=== PATIENT | female | born 1965 | race Caucasian/White ===

== ENCOUNTER → 2017-08-22 12:26 | Outpatient (CLI) | payer MEDICAID, SELFPAY ==
[2017-08-22 13:38] LABS: Add Manual Diff / Slide Review NO; Basophils Percent Auto 0.6 % (0-2); Eosinophils Percent Auto 4.4 % (2-4); Hematocrit 32.2 % (36-46); Hemoglobin 10.2 g/dL (12.0-16.0); Lymphocytes Percent Auto 24.5 % (25-40); Mean Corpuscular HGB Conc 31.7 % (30-36); Mean Corpuscular Hemoglobin 25.5 PG (26-34); Mean Corpuscular Volume 80.4 fL (80-100); Monocytes Percent Auto 9.8 % (3-14); Neutrophils Absolute Auto 3600 /uL (3000-5900); Neutrophils Percent Auto 60.7 % (50-75); Platelet Count 292 X10^3/uL (150-400); Red Cell Distribution Width 18.3 % (11.6-14.8)
[2017-08-22 13:51] LABS: Alanine Aminotransferase 32 IU/L (9-52); Albumin 4.3 g/dL (3.5-5.0); Albumin Globulin Ratio 1.2 (1.0-2.8); Alkaline Phosphatase 127 U/L (38-126); Aspartate Aminotransferase 41 IU/L (14-36); Bilirubin Total 0.5 mg/dL (0.2-1.3); Blood Urea Nitrogen 8 mg/dL (7-17); Calcium 9.1 mg/dL (8.4-10.2); Carbon Dioxide 26 mmol/L (22-32); Chloride 105 mmol/L (98-107); Estimated Glomerular Filt Rate > 60.0 mL/min (>60); Globulin 3.7 g/dL (1.7-4.1); Glucose 100 mg/dL (70-100); HEMOLYSIS < 15 (0-50); Potassium 3.8 mmol/L (3.4-5.1); Sodium 142 mmol/L (137-145)
== END ==
PROVIDERS: PCP Family Medicine; Visit Provider Family Medicine
DX: R19.5 Other fecal abnormalities (principal)
CPT/HCPCS: 36415; 80053; 85025

== ENCOUNTER → 2018-01-26 15:22 | Outpatient (CLI) | payer MEDICAID, OTHER, SELFPAY ==
[2018-01-26 16:27] LABS: Alanine Aminotransferase 34 IU/L (9-52); Albumin 4.3 g/dL (3.5-5.0); Albumin Globulin Ratio 1.3 (1.0-2.8); Alkaline Phosphatase 146 U/L (38-126); Aspartate Aminotransferase 83 IU/L (14-36); BUN Creatinine Ratio 13.8 (6-22); Bilirubin Total 0.7 mg/dL (0.2-1.3); Blood Urea Nitrogen 11 mg/dL (7-17); Calcium 9.3 mg/dL (8.4-10.2); Carbon Dioxide 25 mmol/L (22-32); Chloride 103 mmol/L (98-107); Estimated Glomerular Filt Rate > 60.0 mL/min (>60); Globulin 3.4 g/dL (1.7-4.1); Glucose 109 mg/dL (70-100); HEMOLYSIS < 15 (0-50); Potassium 4.6 mmol/L (3.4-5.1); Sodium 142 mmol/L (137-145); Total Protein 7.7 g/dL (6.3-8.2)
== END ==
PROVIDERS: Family Provider Family Medicine; PCP Family Medicine; Visit Provider Family Medicine
DX: I10 Essential (primary) hypertension (principal)
CPT/HCPCS: 36415; 80053

== ENCOUNTER → 2019-05-07 11:42 | Outpatient (CLI) | payer MEDICAID, SELFPAY ==
[2019-05-07 13:14] LABS: Add Manual Diff / Slide Review NO; Basophils Absolute Auto 0 /uL (0-100); Basophils Percent Auto 0.2 % (0-2); Eosinophils Absolute Auto 0 /uL (0-450); Eosinophils Percent Auto 0.2 % (2-4); Hematocrit 31.2 % (36-46); Hemoglobin 10.3 g/dL (12.0-16.0); Lymphocytes Absolute Auto 2100 /uL (1100-4500); Lymphocytes Percent Auto 12.7 % (25-40); Mean Corpuscular HGB Conc 32.9 % (30-36); Mean Corpuscular Hemoglobin 30.2 PG (26-34); Mean Corpuscular Volume 91.8 fL (80-100); Monocytes Absolute Auto 900 /uL (0-900); Monocytes Percent Auto 5.7 % (3-14); Neutrophils Absolute Auto 13100 /uL (1500-7000); Neutrophils Percent Auto 81.2 % (50-75); Platelet Count 400 X10^3/uL (150-400); Red Cell Distribution Width 19.5 % (11.6-14.8); White Blood Cell Count 16.2 X10^3/uL (4.5-11.0)
[2019-05-07 13:33] LABS: INR 1.2 (0.9-1.3); Prothrombin Time 14.2 SECONDS (10.1-12.7)
[2019-05-07 15:19] LABS: Alanine Aminotransferase 31 IU/L (<35); Albumin 2.6 g/dL (3.5-5.0); Albumin Globulin Ratio 0.7 (1.0-2.8); Alkaline Phosphatase 323 U/L (38-126); Aspartate Aminotransferase 158 IU/L (14-36); BUN Creatinine Ratio 8.3 (6-22); Bilirubin Total 1.6 mg/dL (0.2-1.3); Blood Urea Nitrogen 5 mg/dL (7-17); Calcium 8.1 mg/dL (8.4-10.2); Carbon Dioxide 27 mmol/L (22-32); Chloride 103 mmol/L (98-107); Estimated Glomerular Filt Rate > 60.0 mL/min (>60); Globulin 3.6 g/dL (1.7-4.1); Glucose 81 mg/dL (70-100); HEMOLYSIS < 15 (0-50); Sodium 138 mmol/L (137-145); Total Protein 6.2 g/dL (6.3-8.2)
[2019-05-07 15:28] LABS: NT-proBNP (BNP-Adult 18+) 378 pg/mL (<125)
[2019-05-07 16:36] LABS: Hepatitis B Surface Antigen NEGATIVE s/c (NEGATIVE)
[2019-05-07 16:55] LABS: HIV 1 & 2 Ab/Ag 4th Gen Combo NEGATIVE (NEGATIVE); Hep C Virus Ab w/Reflex Quant NEGATIVE s/c (NEGATIVE)
[2019-05-11 15:07] LABS: Hepatitis B Surf Ab Qualitativ Nonreactive (Nonreactive)
== END ==
PROVIDERS: Family Provider Family Medicine; PCP Family Medicine; Referring Provider Family Medicine; Visit Provider Family Medicine
DX: R10.9 Unspecified abdominal pain (principal); Z87.898 Personal history of other specified conditions; R60.0 Localized edema
CPT/HCPCS: 36415; 80053; 83880; 85025; 85610; 86706; 86803; 87340; 87389

== ENCOUNTER 2019-05-08 17:09 | Inpatient (IN) | payer MEDICARE, MEDICAID, SELFPAY ==
[2019-05-08 17:45] VITALS: BP 128/76; PULSE 107; RESP 20; TEMP 36.8; O2SAT 99; BMI 25.4
--- NOTE | 2019-05-08 18:16 | ED_ITS ---
HPI - Extremity Problem General Chief complaint: Extremity Problem,Nontraumatic Stated complaint: states abnormal labs, legs swelling Time Seen by Provider: 05/08/19 18:00 Source: patient Mode of arrival: Family Vehicle Limitations: no limitations History of Present Illness HPI Narrative: 53-year-old female nonsmoker with history of uterine cancer, factor 5 Leiden and DVTs with extensive bowel surgeries presents with abdominal pain, generalized fatigue and a general feeling of being unwell for the past week or 2. She states that she has had nausea and vomiting, poor appetite and severe abdominal pain over that time frame. She denies any runny nose, sore throat or cough. She denies chest pain but has been a bit short of breath. She denies any fever or shaking chills. Patient had lost about 60 pounds unplanned over the last year, but has had some unexplained weight gain over the past week. Last BM about 5 days ago. Patient is overall doing quite unwell, not able to eat or drink, suffering significant pain and unable to care for herself. MD Complaint: extremity swelling Onset (ago): day(s) Pain Consistency: constant Quality: aching Relieving factors: nothing Associated symptoms: shortness of breath Related Data Home Medications Medication Instructions Recorded Confirmed sertraline 50 mg tablet 50 mg PO DAILY 01/28/19 05/07/19 lamotrigine 100 mg tablet 150 mg PO DAILY tab 05/07/19 05/07/19 quetiapine 100 mg tablet 100 mg PO BEDTIME 05/07/19 05/07/19 Previous Rx's Medication Instructions Recorded promethazine 25 mg tablet 25 mg PO Q6H PRN #30 tab 09/21/18 levetiracetam 1,000 mg tablet 1,000 mg PO BID #60 tab 01/15/19 hydroxyzine HCl 25 mg tablet 25 mg PO QID PRN #120 tab 01/28/19 apixaban 2.5 mg tablet 2.5 mg PO BID #60 mg 03/18/19 Allergies Allergy/AdvReac Type Severity Reaction Status Date / Time cephalexin [From KEFLEX] Allergy Intermediate Verified 05/08/19 17:52 Review of Systems Constitutional Constitutional: Denies chills, Reports fatigue, Denies fever(s), Denies frequent falls, Denies lethargy and Reports weakness Eyes Eyes: Denies change in vision, Denies eye discharge, Denies irritation and Denies loss of vision ENT Ears, Nose, Mouth, and Throat: Denies change in voice, Denies dizziness, Denies neck pain, Denies sore throat and Denies throat swelling Cardiovascular Cardiovascular: Denies chest pain, Denies irregular heart rhythm, Denies lightheadedness, Denies palpitations, Reports dyspnea, Reports dyspnea on exertion and Denies orthopnea Respiratory Respiratory: Denies cough, Reports dyspnea, Reports dyspnea on exertion and Denies wheezing Gastrointestinal Gastrointestinal: Reports abdominal pain, Denies change in bowel habits, Denies diarrhea, Denies nausea and Denies vomiting Genitourinary Genitourinary: Denies hematuria, Denies flank pain, Denies urinary incontinence and Denies urinary urgency Musculoskeletal Musculoskeletal: Denies back pain, Denies muscle weakness, Denies neck pain, Denies numbness and Denies tingling Integumentary/Breasts Skin/Breast: Denies pruritus, Denies erythema, Denies rash and Denies wounds Neurologic Neurologic: Denies behavioral changes, Denies confusion, Denies dizziness, Denies frequent falls, Denies loss of vision, Denies numbness, Denies tingling and Reports weakness Psychiatric Psychiatric: Denies anxiety, Denies behavioral changes, Denies confusion, Denies depression, Denies homicidal ideation and Denies suicidal ideation Endocrine Endocrine: Reports fatigue, Denies flushing and Denies palpitations Hematologic/Lymphatic Hematologic/Lymphatic: Denies easy bruising Allergic/Immunologic Allergic/Immunologic: Denies urticaria, Denies throat swelling and Denies wheezing Patient History Medical History History of agoraphobia (Chronic) History of anemia (Chronic) History of anxiety (Chronic) History of Lau's palsy (Resolved) History of chickenpox (Resolved) History of chronic back pain (Resolved) History of depression (Chronic) History of deviated nasal septum (Chronic) History of DVT (deep vein thrombosis) (Resolved) History of factor V Leiden mutation (Chronic) History of hypertension (Chronic) History of ovarian cyst (Resolved) History of pancreatitis (Resolved) History of posttraumatic stress disorder (PTSD) (Chronic) History of prolapse of bladder (Chronic) History of pulmonary embolism (Resolved) History of restless legs syndrome (Chronic) History of seizures (Chronic) History of substance abuse (Resolved) History of uterine cancer (Resolved) Multiple fractures of thoracic spine (Resolved) Surgical History H/O left knee surgery (Resolved) H/O wisdom tooth extraction (Resolved) History of appendectomy (Resolved) History of gastric bypass (Resolved) History of tonsillectomy and adenoidectomy (Resolved) History of total hysterectomy (Suspected) S/P abdominoplasty (Resolved) S/P bilateral breast reduction (Chronic) S/P breast biopsy, right (Resolved) S/P cholecystectomy (Resolved) S/P gastrectomy (Resolved) Thrombus (Chronic) Family History Child Age: 22 Factor V Leiden Child Age: 23 Atrial fibrillation Father Age: 76 COPD (chronic obstructive pulmonary disease) Colon cancer Hypertension Grandfather Hypertension Grandmother Diabetes mellitus Heart disease Hypertension Mother Diabetes mellitus Hypertension Mental health problem Grandfather Hypertension Social History marital status: occupational status: unemployed Smoking Status: Never smoker alcohol intake: current substance use type: methamphetamine Smoking Status: Never smoker alcohol intake frequency: 0-2 drinks per day Substance Use Type: does not use Exam Narrative Exam Narrative: GENERAL: [53] year old patient appears stated age. Chronically ill HEAD: Atraumatic. Normocephalic. Temporal wasting EYES: Pupils equal round and reactive. Extraocular motions intact. No scleral icterus. No injection or drainage. ENT: Nose without bleeding, purulent drainage. Throat without erythema, tonsillar hypertrophy or exudate. Airway patent. NECK: Trachea midline. Non tender CARDIOVASCULAR: Regular rate and rhythm without murmurs, gallops, or rubs. RESPIRATORY: Faint crackles in left base. GASTROINTESTINAL: Abdomen soft, painful to palp, nondistended. EXTREMITIES: No edema or joint tenderness. BACK: Nontender without deformity or crepitance. No flank tenderness. NEURO: AOx3. SKIN: No rash or erythema of visible areas Initial Vital Signs Initial Vital Signs: Vital Signs Temperature 98.3 F 05/08/19 17:45 Pulse Rate 107 H 05/08/19 17:45 Respiratory Rate 20 05/08/19 17:45 Blood Pressure 128/76 05/08/19 17:45 Pulse Oximetry 99 05/08/19 17:45 Course Orders Ordered: ED Orders 05/08/19 22:26 CT chest abd pel w con Stat 05/09/19 03:30 Consult to General Surgery Stat 05/09/19 04:00 Lactate (Lactic Acid) Stat Discontinued Medications Levofloxacin (Levaquin) 500 mg in 100 mls @ 100 mls/hr IV NOW ONE Stop: 05/09/19 03:34 Last Admin: 05/09/19 03:59 Dose: 100 mls/hr Documented by: PATIENCE Metronidazole (Flagyl) 500 mg in 100 mls @ 100 mls/hr IV NOW ONE Stop: 05/09/19 03:34 Consultations Consultation #1: Dr. Chan consulted regarding CT findings. Recommends ABX, admission to hospitalist service and will see her in the morning. Vital Signs Vital signs: Vital Signs - 8 hr 05/08/19 21:30 05/09/19 01:06 Pulse Rate 97 H 91 H Respiratory Rate 17 18 Blood Pressure [Left Arm] 112/71 108/79 Pulse Oximetry 94 97 MDM - Extremity (Nontraumatic) Lab Data Result diagrams: 05/08/19 18:31 05/08/19 18:31 Labs: Lab Results 05/08/19 05/08/19 05/08/19 Range/Units 18:31 18:31 18:31 WBC 16.1 H (4.5-11.0) X10^3/uL RBC 3.50 L (4.0-5.2) X10^6/uL Hgb 10.6 L (12.0-16.0) g/dL Hct 32.1 L (36-46) % MCV 91.9 (80-100) fL MCH 30.3 (26-34) PG MCHC 33.0 (30-36) % RDW 19.8 H (11.6-14.8) % Plt Count 410 H (150-400) X10^3/uL Neut % (Auto) 76.6 H (50-75) % Lymph % (Auto) 17.1 L (25-40) % [place] % (Auto) 6.0 (3-14) % Eos % (Auto) 0.2 L (2-4) % Baso % (Auto) 0.1 (0-2) % Neut # (Auto) 75207 H (0933-4062) /uL Lymph # (Auto) 2800 (7082-4630) /uL [place] # (Auto) 1000 H (0-900) /uL Eos # (Auto) 0 (0-450) /uL Baso # (Auto) 0 (0-100) /uL PT 15.8 H (10.1-12.7) SECONDS INR 1.4 H (0.9-1.3) APTT 45 H (26.4-36.2) SECONDS Sodium 140 (137-145) mmol/L Potassium 3.6 (3.4-5.1) mmol/L Chloride 102 (98-107) mmol/L Carbon Dioxide 27 (22-32) mmol/L BUN 5 L (7-17) mg/dL Creatinine 0.60 (0.52-1.04) mg/dL Estimated GFR > 60.0 (>60) mL/min BUN/Creatinine Ratio 8.3 (6-22) Glucose 103 H (70-100) mg/dL Calcium 8.1 L (8.4-10.2) mg/dL Total Bilirubin 1.5 H (0.2-1.3) mg/dL AST 188 H (14-36) IU/L ALT 32 (<35) IU/L Alkaline Phosphatase 346 H (38-126) U/L Total Creatine Kinase (30-135) U/L CK-MB (CK-2) CK-MB (CK-2) Rel Index Troponin I (0.01-0.034) ng/mL NT-Pro-B Natriuret Pep (<125) pg/mL Total Protein 6.8 (6.3-8.2) g/dL Albumin 3.0 L (3.5-5.0) g/dL Globulin 3.8 (1.7-4.1) g/dL Albumin/Globulin Ratio 0.8 L (1.0-2.8) Lipase 138 (23-300) U/L Blood Type Antibody Screen 05/08/19 05/08/19 Range/Units 18:31 18:31 WBC (4.5-11.0) X10^3/uL RBC (4.0-5.2) X10^6/uL Hgb (12.0-16.0) g/dL Hct (36-46) % MCV (80-100) fL MCH (26-34) PG MCHC (30-36) % RDW (11.6-14.8) % Plt Count (150-400) X10^3/uL Neut % (Auto) (50-75) % Lymph % (Auto) (25-40) % [place] % (Auto) (3-14) % Eos % (Auto) (2-4) % Baso % (Auto) (0-2) % Neut # (Auto) (5744-6330) /uL Lymph # (Auto) (9470-6577) /uL [place] # (Auto) (0-900) /uL Eos # (Auto) (0-450) /uL Baso # (Auto) (0-100) /uL PT (10.1-12.7) SECONDS INR (0.9-1.3) APTT (26.4-36.2) SECONDS Sodium (137-145) mmol/L Potassium (3.4-5.1) mmol/L Chloride (98-107) mmol/L Carbon Dioxide (22-32) mmol/L BUN (7-17) mg/dL Creatinine (0.52-1.04) mg/dL Estimated GFR (>60) mL/min BUN/Creatinine Ratio (6-22) Glucose (70-100) mg/dL Calcium (8.4-10.2) mg/dL Total Bilirubin (0.2-1.3) mg/dL AST (14-36) IU/L ALT (<35) IU/L Alkaline Phosphatase (38-126) U/L Total Creatine Kinase 27 L (30-135) U/L CK-MB (CK-2) TNP CK-MB (CK-2) Rel Index TNP Troponin I < 0.012 (0.01-0.034) ng/mL NT-Pro-B Natriuret Pep 555 H (<125) pg/mL Total Protein (6.3-8.2) g/dL Albumin (3.5-5.0) g/dL Globulin (1.7-4.1) g/dL Albumin/Globulin Ratio (1.0-2.8) Lipase (23-300) U/L Blood Type A Positive Antibody Screen Negative Imaging Data CT scan - abdomen/pelvis: Radiologist's Impression: Liver is enlarged, severely heterogeneous with questionable hepatocellular disease. There is geographic pattern of fatty infiltration and areas of fatty spacing. Moderate amount of ascites in the abdomen and pelvis. Chest notes a moderate left-sided pleural effusion. Additional findings note a 7.5 cm x 4.6 cm fluid collection midline in the upper pelvis. There is questionable short-segment partial small-bowel obstruction versus abscess Discharge Plan Departure Patient Disposition: Admitted As Inpatient Clinical Impression: Pleural effusion, Partial obstruction of small intestine, Adult failure to thrive Admit Date/Time: 05/09/19 04:16 Admit Provider: Elsa Valdez
[2019-05-08 18:41] LABS: Add Manual Diff / Slide Review NO; Basophils Absolute Auto 0 /uL (0-100); Basophils Percent Auto 0.1 % (0-2); Eosinophils Absolute Auto 0 /uL (0-450); Eosinophils Percent Auto 0.2 % (2-4); Hematocrit 32.1 % (36-46); Hemoglobin 10.6 g/dL (12.0-16.0); Lymphocytes Absolute Auto 2800 /uL (1100-4500); Lymphocytes Percent Auto 17.1 % (25-40); Mean Corpuscular Hemoglobin 30.3 PG (26-34); Mean Corpuscular Volume 91.9 fL (80-100); Monocytes Absolute Auto 1000 /uL (0-900); Neutrophils Absolute Auto 12400 /uL (1500-7000); Neutrophils Percent Auto 76.6 % (50-75); Platelet Count 410 X10^3/uL (150-400); Red Cell Distribution Width 19.8 % (11.6-14.8); White Blood Cell Count 16.1 X10^3/uL (4.5-11.0)
[2019-05-08 18:51] LABS: INR 1.4 (0.9-1.3); Prothrombin Time 15.8 SECONDS (10.1-12.7)
[2019-05-08 18:54] LABS: PTT Partial Thromboplastin Tim 45 SECONDS (26.4-36.2)
[2019-05-08 18:55] LABS: Alanine Aminotransferase 32 IU/L (<35); Albumin Globulin Ratio 0.8 (1.0-2.8); Alkaline Phosphatase 346 U/L (38-126); Aspartate Aminotransferase 188 IU/L (14-36); BUN Creatinine Ratio 8.3 (6-22); Bilirubin Total 1.5 mg/dL (0.2-1.3); Blood Urea Nitrogen 5 mg/dL (7-17); Calcium 8.1 mg/dL (8.4-10.2); Carbon Dioxide 27 mmol/L (22-32); Chloride 102 mmol/L (98-107); Estimated Glomerular Filt Rate > 60.0 mL/min (>60); Globulin 3.8 g/dL (1.7-4.1); Glucose 103 mg/dL (70-100); HEMOLYSIS 23 (0-50); Lipase 138 U/L (23-300); Potassium 3.6 mmol/L (3.4-5.1); Sodium 140 mmol/L (137-145); Total Protein 6.8 g/dL (6.3-8.2)
[2019-05-08 19:25] LABS: Creatine Kinase 27 U/L (30-135)
[2019-05-08 19:38] LABS: NT-proBNP (BNP-Adult 18+) 555 pg/mL (<125); Troponin I < 0.012 ng/mL (0.01-0.034)
[2019-05-08 21:30] VITALS: BP 112/71; PULSE 97; RESP 17; O2SAT 94
--- NOTE | 2019-05-08 22:26 | DI.CT.S_ITS ---
PROCEDURE: CT CHEST ABD PEL W CON INDICATIONS: pain, short of breath, weakness, weight loss TECHNIQUE: After the administration of oral and intravenous contrast, 5 mm thick sections acquired from the lung apices to the symphysis. 5 mm coronal and sagittal reformats were performed, with additional 7 mm coronal MIP reformats through the lungs. For radiation dose reduction, the following was used: automated exposure control, adjustment of mA and/or kV according to patient size. COMPARISON: None. FINDINGS: Image quality: Excellent. CHEST: Lungs and pleura: No acute airspace opacities. There is a small to moderate left-sided pleural effusion, with associated overlying atelectasis. No pneumothorax. Central and peripheral airways appear patent and normal in caliber. Mediastinum: Heart size is normal. Coronary artery calcifications are seen. No pericardial effusion. No mediastinal or hilar adenopathy by size criteria. Prominent calcified mediastinal lymph nodes are seen. Thoracic aorta and central pulmonary arteries are normal in size. Esophagus is normal in caliber. There is a small hiatal hernia. Chest wall: No axillary or supraclavicular adenopathy by size criteria. Thyroid gland demonstrates a heterogeneous appearance, with an apparent enhancing nodule seen on the left measuring 12 mm, as on series 2 image 2. ABDOMEN: Solid organs: The liver is enlarged and demonstrates residual areas of low density. Gallbladder has been removed. Biliary system is non dilated. Pancreas enhances normally. Spleen is normal in size and enhancement. Calcified granulomas are seen within the spleen. No adrenal nodules. Kidneys demonstrate normal size and enhancement, without hydronephrosis. Peritoneum and bowel: There is a focal fluid collection seen within the midabdomen anteriorly, just posterior to the umbilicus that measures 8 x 4.5 x 4 cm. This is seen immediately adjacent to an anastomotic staple line. Gastroesophageal junction postoperative change is seen. There is postoperative change seen of the distal small bowel. Generalized wall thickening is seen throughout the small bowel. Mild to moderate ascites is seen. Nodes and vessels: No retroperitoneal or mesenteric adenopathy by size criteria. Aorta and inferior vena cava are normal in size. Miscellaneous: No ventral hernias. Anasarca is noted. PELVIS: Genitourinary: Bladder wall thickness is normal. Miscellaneous: No inguinal hernias or adenopathy. Bones: No suspicious bony lesions. Some remote anterior wedge deformities are seen. IMPRESSION: There is a focal fluid collection seen within the midabdomen anteriorly. This is felt most likely be intraluminal, related to a side to side anastomosis. However, differential diagnosis includes an abscess. As clinically appropriate, please consider a repeat examination with oral contrast with a long dwell time (3-4 hours). [id number] left-sided pleural effusion. The liver is enlarged and demonstrates regional areas of low density. This is felt most likely be related to an atypical appearance of fatty liver infiltration. However, an infiltrating process, hepatocellular disease, or unusual metastatic disease is also possible. [id number] ascites is seen There is anasarca. Incidental note is made of: Small hiatal hernia Cholecystectomy Apparent gastric bypass surgery Prior granulomatous exposure. Note: No significant discrepancy from the preliminary report. Dictated by: Anton Pedro M.D. on 05/09/2019 at 8:38 Approved by: Anton Pedro M.D. on 05/09/2019 at 8:49
--- NOTE | 2019-05-08 22:29 | PC.NURSE ---
PICC nurse now at bedside for line placement
[2019-05-09] VITALS (8 sets, daily range): BP systolic 105–132; BP diastolic 60–89; PULSE 86–116; RESP 16–18; TEMP 35.9–36.7; O2SAT 97–99; BMI 25.1
[2019-05-09] MEDS: levoFLOXacin 500 MG/100 ML PIGGYBACK 100 MG IV (03:59)
[2019-05-09 04:34] LABS: Lactate (Lactic Acid) 0.6 mmol/L (0.7-2.1)
--- NOTE | 2019-05-09 06:04 | PM.HP.1 ---
History of Present Illness History of Present Illness Date Patient Seen: 05/09/19 Time Patient Seen: 06:05 Chief complaint: states abnormal labs, legs swelling Narrative: The patient is a 53-year-old female with complex PMH... HTN, factor V leiden, h/o DVT x2 (LLE 1995, ?), PE x2 (1197, ?), chronic Eliquis anticoagulation, h/o uterine cancer (s/p hysterectomy, 2001), pancreatitis, obesity (s/p gastric bypass), epilepsy (last seizure 08/2018), psychiatric illness (PTSD, depression, agoraphobia, h/o prior meth abuse and EtOH abuse), chronic back pain, RLS, h/o SBO x2, Patient presented to the ED on 05/08/2019 out of concern for abdominal pain. Abdominal pain is localized to the RUQ and epigastic regions of the abdomen. Associated symptoms include exertional dyspnea, peripheral edema, abdominal distention, 40 lb weight loss (over 4 months), progressive fatigue, and chest pain (worse w/ inspiration). Patient reports difficulty swallowing and sensation of food being stuck in esophagus. Reports change in pattern of micturition and color of urine. Denies fever and chills. Abdominal pain is exacerbated by food consumption. Reports rectal bleeding 1 month ago, which patient attributed to hemorrhoids. Last BM on Friday. Reports passing gas. Known history of multiple abdominal surgeries (appendectomy, gastric by pass surgery w/ complications, partial small-bowel resection, YOANA, and abdominoplasty. Prior h/o of SBO x2 (last 10 yrs ago). CT (chest, abdomen, and pelvis) concerning for left pleural effusion, hepatomegaly / hepatocellular disease and short-segment partial SBO vs. extraluminal abscess. General surgery was consulted, Dr. Barnes, with plans to see patient later this morning. Pertinent abnormal labs... WBC 16.1, Hgb 10.6 ED Presentation & Work-Up Stable VS trend. Labs, 05/08/19 1831 WBC 16.1 Lactate 0.6 Trop < 0.012 Nt-pro BNP 555 Hgb 10.6 Plt 410 PT 15.8 INR 1.4 aPTT 45 Na 140 K 3.6 Cl 102 Ca 8.1 Alb 3.0 Glu 103 CO2 27 BUN 5 Cr 0.6 BUN:Cr 8.3 AST 188 ALT 32 ALP 346 Lipase 138 CK (tot) 27 CT of chest / abdomen / pelvis Moderate left pleural effusion with posterior lower lobe atelectasis Liver is enlarged severely, question hepatocellular disease There is a geographic pattern of fatty infiltration w/ focal areas of fat sparing A 7.5 cm x 4.6 cm fluid collection in the midline of the upper pelvis, question of short segment partial SBO vs. Extraluminal Abscess In ED received, levofloxacin 500 mg. Patient History Medical History History of agoraphobia (Chronic) History of anemia (Chronic) History of anxiety (Chronic) History of Lau's palsy (Resolved) History of chickenpox (Resolved) History of chronic back pain (Resolved) History of depression (Chronic) History of deviated nasal septum (Chronic) History of DVT (deep vein thrombosis) (Resolved) History of factor V Leiden mutation (Chronic) History of hypertension (Chronic) History of ovarian cyst (Resolved) History of pancreatitis (Resolved) History of posttraumatic stress disorder (PTSD) (Chronic) History of prolapse of bladder (Chronic) History of pulmonary embolism (Resolved) History of restless legs syndrome (Chronic) History of seizures (Chronic) History of substance abuse (Resolved) History of uterine cancer (Resolved) Multiple fractures of thoracic spine (Resolved) Surgical History H/O left knee surgery (Resolved) H/O wisdom tooth extraction (Resolved) History of appendectomy (Resolved) History of gastric bypass (Resolved) History of tonsillectomy and adenoidectomy (Resolved) History of total hysterectomy (Suspected) S/P abdominoplasty (Resolved) S/P bilateral breast reduction (Chronic) S/P breast biopsy, right (Resolved) S/P cholecystectomy (Resolved) S/P gastrectomy (Resolved) Thrombus (Chronic) Family & Social History Family History Child Age: 22 Factor V Leiden Child Age: 23 Atrial fibrillation Father Age: 76 COPD (chronic obstructive pulmonary disease) Colon cancer Hypertension Grandfather Hypertension Grandmother Diabetes mellitus Heart disease Hypertension Mother Diabetes mellitus Hypertension Mental health problem Grandfather Hypertension Social History: household members significant other Prior Living Arrangements Apartment/Condo Safety & Behavioral: Feels Safe in Current Yes Environment Been Physically Hurt or Yes Threatened By a Person Suicidal Ideation Description None Suicide Plan Description No Plan Tobacco & Substance use: Smoking Status Never smoker alcohol intake current alcohol intake frequency 0-2 drinks per day Substance Use Type prior history of intravenous meth use, for total of 3 years, quit 18 years ago by report Meds Home Medications and Allergies Home Medications Medication Instructions Recorded Confirmed Type promethazine 25 mg tablet 25 mg PO Q6H PRN #30 tab 09/21/18 05/09/19 Rx levetiracetam 1,000 mg tablet 1,000 mg PO BID #60 tab 01/15/19 05/09/19 Rx hydroxyzine HCl 25 mg tablet 25 mg PO QID PRN #120 tab 01/28/19 05/09/19 Rx sertraline 50 mg tablet 50 mg PO DAILY 01/28/19 05/09/19 History apixaban 2.5 mg tablet 2.5 mg PO BID #60 mg 03/18/19 05/09/19 Rx lamotrigine 100 mg tablet 150 mg PO DAILY tab 05/07/19 05/09/19 History quetiapine 100 mg tablet 100 mg PO BEDTIME 05/07/19 05/09/19 History Allergies Allergy/AdvReac Type Severity Reaction Status Date / Time cephalexin [From KEFLEX] Allergy Intermediate welts Verified 05/09/19 08:10 Review of Systems Review of Systems ROS: Yes All systems reviewed with the patient and are negative except as otherwise documented Exam Vital Signs (past 8 hours): - 05/09/19 01:06 05/09/19 04:31 05/09/19 05:43 Temperature 96.7 F L Pulse Rate 91 H 86 100 H Respiratory Rate 18 16 16 Blood Pressure 120/82 Blood Pressure [Left Arm] 108/79 110/72 Pulse Oximetry 97 97 98 Oxygen Delivery Method Room Air Oxygen Flow Rate 0 Narrative Exam Narrative: Constitutional: NAD Neurologic: AOx3, no focal neurological deficits Head: NC, AT Eyes: PERRL, EOMI, no scleral icterus Ears: external ears normal, no otorrhea Nose: external nose normal, no epistaxis Throat: DRY MM, oropharynx w/o exudate Neck: no masses, lymphadenopathy, or JVD Chest / Respiratory: Crackles present bilaterally. No overt dyspnea with conversation. On room air. Heart / CV: S1S2, no murmur Abdomen / GI: round, + ascites / abdominal edema, tender RUQ, no overt distention, hypoactive BS, palpable hepatomegaly : no suprapubic tenderness Peripheral / Vascular: Cool to touch, sensation intact, palpable peripheral pulses, BLE edema pitting BLE tenderness with palpation Musc: full ROM of upper and lower extremities Skin: no overt jaundice or suspicious lesions / ulcers Objective Labs Result Diagrams: 05/08/19 18:31 05/08/19 18:31 Labs: Laboratory Results - last 24 hr 05/08/19 05/08/19 05/08/19 18:31 18:31 18:31 WBC 16.1 H RBC 3.50 L Hgb 10.6 L Hct 32.1 L MCV 91.9 MCH 30.3 MCHC 33.0 RDW 19.8 H Plt Count 410 H Neut % (Auto) 76.6 H Lymph % (Auto) 17.1 L [place] % (Auto) 6.0 Eos % (Auto) 0.2 L Baso % (Auto) 0.1 Neut # (Auto) 73683 H Lymph # (Auto) 2800 [place] # (Auto) 1000 H Eos # (Auto) 0 Baso # (Auto) 0 PT 15.8 H INR 1.4 H APTT 45 H Sodium 140 Potassium 3.6 Chloride 102 Carbon Dioxide 27 BUN 5 L Creatinine 0.60 Estimated GFR > 60.0 BUN/Creatinine Ratio 8.3 Glucose 103 H Lactate Calcium 8.1 L Total Bilirubin 1.5 H AST 188 H ALT 32 Alkaline Phosphatase 346 H Total Creatine Kinase CK-MB (CK-2) CK-MB (CK-2) Rel Index Troponin I NT-Pro-B Natriuret Pep Total Protein 6.8 Albumin 3.0 L Globulin 3.8 Albumin/Globulin Ratio 0.8 L Lipase 138 Blood Type Antibody Screen 05/08/19 05/08/19 05/09/19 18:31 18:31 04:00 WBC RBC Hgb Hct MCV MCH MCHC RDW Plt Count Neut % (Auto) Lymph % (Auto) [place] % (Auto) Eos % (Auto) Baso % (Auto) Neut # (Auto) Lymph # (Auto) [place] # (Auto) Eos # (Auto) Baso # (Auto) PT INR APTT Sodium Potassium Chloride Carbon Dioxide BUN Creatinine Estimated GFR BUN/Creatinine Ratio Glucose Lactate 0.6 L Calcium Total Bilirubin AST ALT Alkaline Phosphatase Total Creatine Kinase 27 L CK-MB (CK-2) TNP CK-MB (CK-2) Rel Index TNP Troponin I < 0.012 NT-Pro-B Natriuret Pep 555 H Total Protein Albumin Globulin Albumin/Globulin Ratio Lipase Blood Type A Positive Antibody Screen Negative Assessment & Plan Assessment & Plan narrative: Patient is being admitted under observation status for abdominal pain. Abdominal pain, acute, present on admission, active - CT A/P concerning for short segment partial SBO vs. extraluminal abscess - Keep NPO - General surgery consulted - Received levofloxacin 500 mg IV in ED and metronidazole 500 mg IV Q8H change to zosyn, pending evaluation from general surgery Cirrhosis of liver w/ ascites, acute, present on admission, active - CT A/P noting severe hepatomegaly / hepatocellular disease - AST 188 ALT 32 ALP 346 Lipase 138 T.Bili 1.5 - Hepatitis panel drawn on 05/07 and is negative w/ exception HBsAB. - Trend liver enzymes routine lab. CMP, Mg, ammonia in am - Check echo re: NTpro-BNP 555, peripheral edema, acute liver pathology, pleural effusion - Start on lasix 40 mg po and spironolactone 25 mg po Normocytic anemia, chronic condition, present on admission, active H/O bariatric surgery and partial small-bowel resection. On Eliquis AC. Reports rectal bleeding 1 month ago. - Repeat CBC this am - FOBT Factor V Leiden, chronic condition, present on admission, active History of prior PE and DVT. On chronic Eliquis anticoagulation. - Resume PROJECTS MANAGER regimen of Eliquis Epilepsy, chronic condition, present on admission, stable - last seizure on October 16, 2018 - resume levetiracetam and lamotrigine - seizure precautions Anxiety and depression, chronic condition, present on admission, controlled / stable - no harmful thoughts towards self or others - resume PROJECTS MANAGER regimen of sertraline 50 mg QD, quetiapine 100 mg QHS Code status discussed. Patient wishes to be a full code. Designates daughter, Alee, as a surrogate decision maker. Home medications reviewed and reconciled accordingly VTE prophylaxis: on Eliquis Quality VTE Deep Vein Thrombosis/Pulmonary Embolism Present on Admission: No
[2019-05-09] MEDS: metroNIDAZOLE 500 MG/100 ML PIGGYBACK 100 MG IV (06:18)
[2019-05-09 07:57] LABS: Add Manual Diff / Slide Review NO; Basophils Absolute Auto 0 /uL (0-100); Basophils Percent Auto 0.4 % (0-2); Eosinophils Absolute Auto 100 /uL (0-450); Eosinophils Percent Auto 0.5 % (2-4); Hematocrit 25.5 % (36-46); Hemoglobin 8.4 g/dL (12.0-16.0); Lymphocytes Absolute Auto 1200 /uL (1100-4500); Lymphocytes Percent Auto 9.1 % (25-40); Mean Corpuscular HGB Conc 32.9 % (30-36); Mean Corpuscular Hemoglobin 30.1 PG (26-34); Mean Corpuscular Volume 91.6 fL (80-100); Monocytes Absolute Auto 1000 /uL (0-900); Monocytes Percent Auto 7.2 % (3-14); Neutrophils Absolute Auto 11300 /uL (1500-7000); Neutrophils Percent Auto 82.8 % (50-75); Platelet Count 332 X10^3/uL (150-400); Red Blood Cell Count 2.78 X10^6/uL (4.0-5.2); Red Cell Distribution Width 19.6 % (11.6-14.8); White Blood Cell Count 13.6 X10^3/uL (4.5-11.0)
[2019-05-09 08:09] LABS: Alanine Aminotransferase 24 IU/L (<35); Albumin 2.2 g/dL (3.5-5.0); Albumin Globulin Ratio 0.7 (1.0-2.8); Alkaline Phosphatase 248 U/L (38-126); Aspartate Aminotransferase 122 IU/L (14-36); BUN Creatinine Ratio 6.7 (6-22); Bilirubin Total 1.3 mg/dL (0.2-1.3); Blood Urea Nitrogen 4 mg/dL (7-17); Calcium 7.3 mg/dL (8.4-10.2); Carbon Dioxide 27 mmol/L (22-32); Chloride 105 mmol/L (98-107); Estimated Glomerular Filt Rate > 60.0 mL/min (>60); Glucose 78 mg/dL (70-100); HEMOLYSIS < 15 (0-50); Magnesium 1.8 mg/dL (1.6-2.3); Potassium 3.3 mmol/L (3.4-5.1); Sodium 138 mmol/L (137-145); Total Protein 5.2 g/dL (6.3-8.2)
[2019-05-09 08:25] LABS: Procalcitonin 0.36 ng/mL (<0.5)
--- NOTE | 2019-05-09 08:46 | DI.ECHO.S_ITS ---
[facility] +---------+ [facility] +---------+ : : [address] : : : : [id number] : : : : Phone: [phone]+ Echocardiogram Report + + :Name: JOSE RAFAEL MASSEY Study Date: 05/10/2019 Height: 65 in : :[facility] Weight: 153 lb: : Gender: Female BSA: 1.8 m2 : :: 1965 Age: 53 yrs BP: 96/59 mmHg: :Reason For Study: Dyspnea : :Ordering Physician: Abbey : :Hospitalist Performed By: Tiffanie Washington : :Referring: OZZIE ELLSWORTH : + + Interpretation Summary The left ventricle is normal in size and wall thickness. The left ventricular ejection fraction is normal. There are no focal wall motion abnormalities. Diastolic parameters suggest probable normal left ventricular diastolic function and normal filling pressures. The right ventricle is normal in size and function. The right ventricular systolic pressure is estimated to be at least 24 mmHg based on an estimated right atrial pressure of 3 mm Hg. No hemodynamically significant valvular abnormalities. -Overall this echocardiogram shows normal LVEF and normal RV systolic function with no significant valvular abnormalities. This is overall similar to the prior echocardiogram. -A moderate left-sided pleural effusion is suspected. Procedure: A two-dimensional transthoracic echocardiogram with color flow and Doppler was performed. The study quality was technically adequate. Comparison is made with the echocardiogram of 04/01/2007. The patient was in sinus tachycardia with heart rates between 87-101 bpm during the exam. Left Ventricle: The left ventricle is normal in size and wall thickness. The ejection fraction is estimated to be 60-65%. The left ventricular ejection fraction is normal. There are no focal wall motion abnormalities. Diastolic parameters suggest probable normal left ventricular diastolic function and normal filling pressures. Right Ventricle: The right ventricle is normal in size and function. Atria: The left atrium is mildly dilated. Right atrial size is normal. There is no Doppler evidence for an interatrial shunt. Mitral Valve: The mitral valve is normal in structure and function. There is mild mitral regurgitation. Aortic Valve: The aortic valve is trileaflet. The aortic valve opens well. No aortic regurgitation is present. Tricuspid Valve: The tricuspid valve is normal in structure and function. There is mild tricuspid regurgitation. The right ventricular systolic pressure is estimated to be at least 24 mmHg based on an estimated right atrial pressure of 3 mm Hg. Pulmonic Valve: The pulmonic valve is not well visualized. There is no pulmonic valvular regurgitation. Great Vessels: The aortic root is normal size. The ascending aorta could not be visualized. The IVC is of normal diameter and collapses greater than 50% with a sniff. This suggests a low right atrial pressure of 3 mm Hg. Pericardium/ Pleura There is no pericardial effusion. There is a moderate left-sided pleural effusion. MMode/2D Measurements & Calculations LVIDd: 4.1 cm LVOT diam: 2.0 cm LVIDs: 2.6 cm Ao root diam: 2.8 cm FS: 37.9 % Ao Arch Diam (Prox Trans): 3.2 cm EPSS: 0.41 cm IVSd: 0.80 cm LVPWd: 0.78 cm LV richards. diameter/BSA (cm/m^2): 2.3 LV sys. diameter/BSA (cm/m^2): 1.5 LA A2 area: 21.6 cm2 RA long axis: 4.2 cm LA A4 area: 15.3 cm2 RA area: 11.7 cm2 LA length (vol): 4.4 cm RA vol: 28.1 ml LA vol: 64.0 ml RA : 15.9 ml/m2 LA vol index: 36.2 ml/m2 IVC diam: 1.6 cm RVD1 (basal): 2.8 cm TAPSE: 3.0 cm Doppler Measurements & Calculations Ao V2 max: 130.5 cm/sec LVOT Max Elías: 126.7 cm/sec Ao V2 mean: 86.4 cm/sec LV V1 max P.4 mmHg Ao max P.8 mmHg LV V1 VTI: 23.4 cm Ao mean P.4 mmHg TERA(I,D): 3.1 cm2 Ao V2 VTI: 23.0 cm TERA(V,D): 3.0 cm2 sev ratio: 1.0 ETRA indexed to BSA (cm^2/m^2): 1.8 MV E max elías: 107.5 cm/sec TR max elías: 241.0 cm/sec MV A max elías: 60.9 cm/sec TR max P.3 mmHg MV E/A: 1.8 PA V2 max: 74.5 cm/sec Med Peak E' Elías: 13.4 cm/sec PA V2 mean: 54.4 cm/sec E/E' med: 8.0 PA mean P.3 mmHg Lat Peak E' Elías: 16.1 cm/sec PA pr(Accel): 26.1 mmHg E/E' lat: 6.7 PA Accel Time: 0.14 sec E/e' average: 7.4 MV dec time: 0.22 sec MV P1/2t: 62.7 msec MV /2t max elías: 105.5 cm/sec SV(LVOT): 71.1 ml MVA(P1/2t): 3.5 cm2 Electronically signed by: Elliott Hernandez M.D. on Reading Physician:05/10/2019 03:59 PM
[2019-05-09] MEDS: POTASSIUM CHLORIDE 40 MEQ in SODIUM CHLORIDE 0.9% 500 ML 130 ML IV (09:57)
[2019-05-09] MEDS: APIXABAN 5 MG TABLET 2.5 MG PO ×2 (09:57→21:01)
[2019-05-09] MEDS: MAGNESIUM SULFATE 2 GM/50 ML PIGGYBACK IV (09:58)
[2019-05-09] MEDS: lamoTRIgine 100 MG TABLET 150 MG PO (09:58)
[2019-05-09 10:05] LABS: Ammonia (NH3) < 9 umol/L (9-30)
[2019-05-09] MEDS: SERTRALINE 50 MG TABLET PO (10:11)
[2019-05-09] MEDS: levETIRAcetam 250 MG TABLET 1000 MG PO (10:11)
--- NOTE | 2019-05-09 10:26 | PC.NURSE ---
Per Dr. Brennan patient is not having surgery today and has had her diet advanced and medications ordered. Assisting to give patient her morning medications and start IV infusions as ordered, requesting only to have them with water. Shortly after patient became nauseous with gagging and some mucous from mouth. Given cool cloth, and patient requests no other medications at this time, would like to try and rest. Call light within reach.
[2019-05-09] MEDS: ONDANSETRON 4 MG/2 ML INJ IV (11:16)
--- NOTE | 2019-05-09 11:25 | PC.NURSE ---
Patient reports nausea with gagging up frothy mucous in my throat. Dr. Brennan notified and new orders for IV anti emetic received, and zofran administered as ordered. Primary RN updated. Patient resting in bed with call light with reach.
--- NOTE | 2019-05-09 12:08 | PM.CN ---
History of Present Illness Consult details Date Patient Seen: 05/09/19 Time Patient Seen: 12:09 Chief complaint: states abnormal labs, legs swelling Narrative: 53-year-old white female chronically ill patient with numerous gastrointestinal problems over the years comes in with a 1 year history of abdominal pain which has gotten worse over the past week. She has had some vomiting. She is passing diarrhea stools. She had a CT scan in the emergency department which shows a possible fluid collection in the mid abdomen however this very likely is intraluminal fluid. She does not show signs of a bowel obstruction on CT scanning. Meds Home Medications and Allergies Home Medications Medication Instructions Recorded Confirmed Type promethazine 25 mg tablet 25 mg PO Q6H PRN #30 tab 09/21/18 05/09/19 Rx levetiracetam 1,000 mg tablet 1,000 mg PO BID #60 tab 01/15/19 05/09/19 Rx hydroxyzine HCl 25 mg tablet 25 mg PO QID PRN #120 tab 01/28/19 05/09/19 Rx sertraline 50 mg tablet 50 mg PO DAILY 01/28/19 05/09/19 History apixaban 2.5 mg tablet 2.5 mg PO BID #60 mg 03/18/19 05/09/19 Rx lamotrigine 100 mg tablet 150 mg PO DAILY tab 05/07/19 05/09/19 History quetiapine 100 mg tablet 100 mg PO BEDTIME 05/07/19 05/09/19 History Allergies Allergy/AdvReac Type Severity Reaction Status Date / Time cephalexin [From KEFLEX] Allergy Intermediate welts Verified 05/09/19 08:10 Exam Vital Signs (past 8 hours): - 05/09/19 04:31 05/09/19 05:43 05/09/19 08:00 Temperature 96.7 F L 98.1 F Pulse Rate 86 100 H 97 H Respiratory Rate 16 16 16 Blood Pressure 120/82 112/60 Blood Pressure [Left Arm] 110/72 Pulse Oximetry 97 98 98 05/09/19 11:00 05/09/19 11:22 Temperature 97.9 F Pulse Rate 116 H 114 H Respiratory Rate 18 18 Blood Pressure 132/89 121/79 Blood Pressure [Left Arm] Pulse Oximetry 99 97 Oxygen Delivery Method Room Air Oxygen Flow Rate 0 Narrative Exam Narrative: Patient is afebrile and alert and oriented. Abdomen is not distended Abdomen is soft with minimal lower abdominal tenderness. Patient has active bowel sounds. No abdominal masses are noted. Objective Labs Result Diagrams: 05/09/19 07:44 05/09/19 07:44 Labs: Laboratory Results - last 24 hr 05/08/19 05/08/19 05/08/19 18:31 18:31 18:31 WBC 16.1 H RBC 3.50 L Hgb 10.6 L Hct 32.1 L MCV 91.9 MCH 30.3 MCHC 33.0 RDW 19.8 H Plt Count 410 H Neut % (Auto) 76.6 H Lymph % (Auto) 17.1 L [place] % (Auto) 6.0 Eos % (Auto) 0.2 L Baso % (Auto) 0.1 Neut # (Auto) 69167 H Lymph # (Auto) 2800 [place] # (Auto) 1000 H Eos # (Auto) 0 Baso # (Auto) 0 PT 15.8 H INR 1.4 H APTT 45 H Sodium 140 Potassium 3.6 Chloride 102 Carbon Dioxide 27 BUN 5 L Creatinine 0.60 Estimated GFR > 60.0 BUN/Creatinine Ratio 8.3 Glucose 103 H Lactate Calcium 8.1 L Magnesium Total Bilirubin 1.5 H AST 188 H ALT 32 Alkaline Phosphatase 346 H Ammonia Total Creatine Kinase CK-MB (CK-2) CK-MB (CK-2) Rel Index Troponin I NT-Pro-B Natriuret Pep Total Protein 6.8 Albumin 3.0 L Globulin 3.8 Albumin/Globulin Ratio 0.8 L Lipase 138 Procalcitonin Blood Type Antibody Screen 05/08/19 05/08/19 05/09/19 18:31 18:31 04:00 WBC RBC Hgb Hct MCV MCH MCHC RDW Plt Count Neut % (Auto) Lymph % (Auto) [place] % (Auto) Eos % (Auto) Baso % (Auto) Neut # (Auto) Lymph # (Auto) [place] # (Auto) Eos # (Auto) Baso # (Auto) PT INR APTT Sodium Potassium Chloride Carbon Dioxide BUN Creatinine Estimated GFR BUN/Creatinine Ratio Glucose Lactate 0.6 L Calcium Magnesium Total Bilirubin AST ALT Alkaline Phosphatase Ammonia Total Creatine Kinase 27 L CK-MB (CK-2) TNP CK-MB (CK-2) Rel Index TNP Troponin I < 0.012 NT-Pro-B Natriuret Pep 555 H Total Protein Albumin Globulin Albumin/Globulin Ratio Lipase Procalcitonin Blood Type A Positive Antibody Screen Negative 05/09/19 05/09/19 05/09/19 07:44 07:44 07:44 WBC 13.6 H RBC 2.78 L Hgb 8.4 L Hct 25.5 L MCV 91.6 MCH 30.1 MCHC 32.9 RDW 19.6 H Plt Count 332 Neut % (Auto) 82.8 H Lymph % (Auto) 9.1 L [place] % (Auto) 7.2 Eos % (Auto) 0.5 L Baso % (Auto) 0.4 Neut # (Auto) 92718 H Lymph # (Auto) 1200 [place] # (Auto) 1000 H Eos # (Auto) 100 Baso # (Auto) 0 PT INR APTT Sodium 138 Potassium 3.3 L Chloride 105 Carbon Dioxide 27 BUN 4 L Creatinine 0.60 Estimated GFR > 60.0 BUN/Creatinine Ratio 6.7 Glucose 78 Lactate Calcium 7.3 L Magnesium 1.8 Total Bilirubin 1.3 AST 122 H ALT 24 Alkaline Phosphatase 248 H Ammonia Total Creatine Kinase CK-MB (CK-2) CK-MB (CK-2) Rel Index Troponin I NT-Pro-B Natriuret Pep Total Protein 5.2 L Albumin 2.2 L Globulin 3.0 Albumin/Globulin Ratio 0.7 L Lipase Procalcitonin 0.36 Blood Type Antibody Screen 05/09/19 09:43 WBC RBC Hgb Hct MCV MCH MCHC RDW Plt Count Neut % (Auto) Lymph % (Auto) [place] % (Auto) Eos % (Auto) Baso % (Auto) Neut # (Auto) Lymph # (Auto) [place] # (Auto) Eos # (Auto) Baso # (Auto) PT INR APTT Sodium Potassium Chloride Carbon Dioxide BUN Creatinine Estimated GFR BUN/Creatinine Ratio Glucose Lactate Calcium Magnesium Total Bilirubin AST ALT Alkaline Phosphatase Ammonia < 9 L Total Creatine Kinase CK-MB (CK-2) CK-MB (CK-2) Rel Index Troponin I NT-Pro-B Natriuret Pep Total Protein Albumin Globulin Albumin/Globulin Ratio Lipase Procalcitonin Blood Type Antibody Screen Assessment & Plan Assessment & Plan narrative: Patient has had prior gastric stapling back in the 1980s and then had a Marlee-en-Y gastric bypass done subsequent to that. She has a question history of uterine cancer but I cannot get details there of. She is having diarrhea stools. I have personally reviewed her CT scan and I do not think she has a bowel obstruction. The radiologist agrees. There is a suggestion of a fluid collection in the mid abdomen but I think this likely is intraluminal adjacent to an anastomosis. Patient does have a left pleural effusion and some evidence of ascites and hepatic failure. She also has possible congestive heart failure. At this point I do not see an indication for any further surgical intervention.
[2019-05-09] MEDS: PIPERACILLIN-TAZO 3.375 GM/50 ML FROZ.PIGGY IV ×2 (12:29→18:25)
[2019-05-09] MEDS: ACETAMINOPHEN 325 MG TABLET 650 MG PO (13:35)
--- NOTE | 2019-05-09 13:50 | CM.DANOTE ---
Patient is a 53 year old female who was admitted today on 05/09/19 for Swelling, Abd pain. Pt has [facility] and [facility] for insurance and her PCP is Dr. Kendal Perez. EMR was reviewed. Per MD, pt with an extensive medical hx for cancer, epilepsy, PTSD/agoraphobia, hx of meth and ETOH resolved. Per Surgeon Consult, likely no SBO and no current need for surgical intervention but currently on Zocyn and dieurese and ordering Echo and pt likely here a couple days. SW met bedside with pt and explained role and pt confirms that she lives in an apartment in [place] with a male roommate that pt states would not likely provide much assist or support as he's an asshole. Pt is independent with ADL's at baseline and drives as she drove herself to the hospital and her vehicle is in the parking lot. Pt denies any hx of SNF or HH but states over the past year she has struggled with abdominal pain and discomfort and has become increasingly less independent or active. Pt denies any other local family or friend support. Plan: SW to follow closely tomorrow to determine pt's Echo results and if pt can tolerate advanced diet towards identifying any further d/c planning needs. CHASE Muniz Discharge Planning/Care Management CM Discharge Assessment Start: 05/09/19 13:48 Freq: Status: Active Protocol: Document 05/09/19 13:49 BF (Rec: 05/09/19 13:50 BF [id number]) Discharge Planning Assessment Assigned Personnel Security Specialist CHASE Villafuerte DPOA/Assigned Designee Name none Advance Directives? No Advance Directives on File No History Provided By Patient,Medical Record Has Patient been admitted in last 30 No days? Prior Living Arrangements Apartment/Condo Household Members other Comment roommate Type of transporation used prior to Drives own vehicle admit Independent with ADL's Yes Is patient alert and oriented? Yes Caregiver for Another No Patient/Family Preference Home with Home Health Barriers to Discharge No Discharge Plan Home Transportation Arrangement Pt states she drove herself to the ED and her vehicle is in the parking lot Whiteboard Updated in Patient Room with Yes name and ext. # of Personnel Security Specialist Review Status In Process Please Provide Date Initial DC 05/09/19 Assessment Was Performed Next Review Type Continued Stay Review
[2019-05-09] MEDS: FUROSEMIDE 20 MG TABLET PO (15:05)
[2019-05-09] MEDS: SPIRONOLACTONE 50 MG TABLET PO (16:26)
--- NOTE | 2019-05-09 18:11 | P.PN_ITS ---
Subjective Subjective Date Patient Seen: 05/09/19 Exam Vital Signs (past 8 hours): - 05/09/19 11:00 05/09/19 11:22 05/09/19 16:00 Temperature 97.9 F 97.6 F Pulse Rate 116 H 114 H 86 Respiratory Rate 18 18 16 Blood Pressure 132/89 121/79 105/69 Pulse Oximetry 99 97 97 Oxygen Delivery Method Room Air Oxygen Flow Rate 0 Objective Labs Result Diagrams: 05/09/19 07:44 05/09/19 07:44 Labs: Laboratory Results - last 24 hr 05/08/19 05/08/19 05/08/19 18:31 18:31 18:31 WBC 16.1 H RBC 3.50 L Hgb 10.6 L Hct 32.1 L MCV 91.9 MCH 30.3 MCHC 33.0 RDW 19.8 H Plt Count 410 H Neut % (Auto) 76.6 H Lymph % (Auto) 17.1 L Stanley % (Auto) 6.0 Eos % (Auto) 0.2 L Baso % (Auto) 0.1 Neut # (Auto) 51958 H Lymph # (Auto) 2800 Stanley # (Auto) 1000 H Eos # (Auto) 0 Baso # (Auto) 0 PT 15.8 H INR 1.4 H APTT 45 H Sodium 140 Potassium 3.6 Chloride 102 Carbon Dioxide 27 BUN 5 L Creatinine 0.60 Estimated GFR > 60.0 BUN/Creatinine Ratio 8.3 Glucose 103 H Lactate Calcium 8.1 L Magnesium Total Bilirubin 1.5 H AST 188 H ALT 32 Alkaline Phosphatase 346 H Ammonia Total Creatine Kinase CK-MB (CK-2) CK-MB (CK-2) Rel Index Troponin I NT-Pro-B Natriuret Pep Total Protein 6.8 Albumin 3.0 L Globulin 3.8 Albumin/Globulin Ratio 0.8 L Lipase 138 Procalcitonin Blood Type Antibody Screen 05/08/19 05/08/19 05/09/19 18:31 18:31 04:00 WBC RBC Hgb Hct MCV MCH MCHC RDW Plt Count Neut % (Auto) Lymph % (Auto) Stanley % (Auto) Eos % (Auto) Baso % (Auto) Neut # (Auto) Lymph # (Auto) Stanley # (Auto) Eos # (Auto) Baso # (Auto) PT INR APTT Sodium Potassium Chloride Carbon Dioxide BUN Creatinine Estimated GFR BUN/Creatinine Ratio Glucose Lactate 0.6 L Calcium Magnesium Total Bilirubin AST ALT Alkaline Phosphatase Ammonia Total Creatine Kinase 27 L CK-MB (CK-2) TNP CK-MB (CK-2) Rel Index TNP Troponin I < 0.012 NT-Pro-B Natriuret Pep 555 H Total Protein Albumin Globulin Albumin/Globulin Ratio Lipase Procalcitonin Blood Type A Positive Antibody Screen Negative 05/09/19 05/09/19 05/09/19 07:44 07:44 07:44 WBC 13.6 H RBC 2.78 L Hgb 8.4 L Hct 25.5 L MCV 91.6 MCH 30.1 MCHC 32.9 RDW 19.6 H Plt Count 332 Neut % (Auto) 82.8 H Lymph % (Auto) 9.1 L Stanley % (Auto) 7.2 Eos % (Auto) 0.5 L Baso % (Auto) 0.4 Neut # (Auto) 08214 H Lymph # (Auto) 1200 Stanley # (Auto) 1000 H Eos # (Auto) 100 Baso # (Auto) 0 PT INR APTT Sodium 138 Potassium 3.3 L Chloride 105 Carbon Dioxide 27 BUN 4 L Creatinine 0.60 Estimated GFR > 60.0 BUN/Creatinine Ratio 6.7 Glucose 78 Lactate Calcium 7.3 L Magnesium 1.8 Total Bilirubin 1.3 AST 122 H ALT 24 Alkaline Phosphatase 248 H Ammonia Total Creatine Kinase CK-MB (CK-2) CK-MB (CK-2) Rel Index Troponin I NT-Pro-B Natriuret Pep Total Protein 5.2 L Albumin 2.2 L Globulin 3.0 Albumin/Globulin Ratio 0.7 L Lipase Procalcitonin 0.36 Blood Type Antibody Screen 05/09/19 09:43 WBC RBC Hgb Hct MCV MCH MCHC RDW Plt Count Neut % (Auto) Lymph % (Auto) Stanley % (Auto) Eos % (Auto) Baso % (Auto) Neut # (Auto) Lymph # (Auto) Stanley # (Auto) Eos # (Auto) Baso # (Auto) PT INR APTT Sodium Potassium Chloride Carbon Dioxide BUN Creatinine Estimated GFR BUN/Creatinine Ratio Glucose Lactate Calcium Magnesium Total Bilirubin AST ALT Alkaline Phosphatase Ammonia < 9 L Total Creatine Kinase CK-MB (CK-2) CK-MB (CK-2) Rel Index Troponin I NT-Pro-B Natriuret Pep Total Protein Albumin Globulin Albumin/Globulin Ratio Lipase Procalcitonin Blood Type Antibody Screen Assessment & Plan Assessment & Plan narrative: Brief progress note: Patient seen and examined. Patient is hemodynamically stable. Physical exam unchanged other than resolving mild bilateral lower extremity pitting edema to pretibial area bilaterally. Discussed CT chest, abdomen and pelvis findings and fatty liver disease with possible early cirrhosis in detail. Patient is quite anxious and emotionally labile regarding this diagnosis. Started furosemide 20 mg daily and spironolactone 50 mg daily to treat abdominal ascites secondary to fatty liver disease. Recommend patient be referred to hepatology for further evaluation of liver disease. Consulted dietitian for recommendations regarding liver disease, vitamin deficiency due to bariatric surgeries, and unintentional weight loss with probable protein calorie malnutrition. Admitting provider ordered echocardiogram which is pending. Surgery recommended small-bowel follow-through to further assess GI anatomy with no surgical surgical intervention indicated at this time. Patient has planned upper and lower endoscopy in 1 week which I have recommended keeping her scheduled appointment. Quality VTE Deep Vein Thrombosis/Pulmonary Embolism Present on Admission: No
[2019-05-09 19:43] LABS: Bacteria Urine None Seen; RBC Urine None Seen (0-5/HPF); WBC Urine None Seen (0-5/HPF)
[2019-05-09 19:48] LABS: Appearance Urine UA CLEAR; Bilirubin Urine UA NEGATIVE (NEGATIVE); Color Urine UA YELLOW; Glucose Urine UA NEGATIVE (Negative); Ketones Urine UA NEGATIVE (NEGATIVE); Leukocyte Esterase Urine UA NEGATIVE (NEGATIVE); Nitrite Urine UA NEGATIVE (Negative); Occult Blood Urine UA NEGATIVE (Negative); Protein Urine UA NEGATIVE (Negative); Specific Gravity Urine UA 1.015 (1.000-1.035); Urobilinogen Urine UA 0.2 E.U./dL (0.2)
[2019-05-09 19:58] LABS: Culture Indicated Urine Cult Not Indicated; Hyaline Casts Urine 1-5/LPF; Squamous Epithelial Cell Urine 1-5 /HPF (0-5/HPF)
[2019-05-09] MEDS: SODIUM CHLORIDE 0.9% FLUSH 10 ML IV (21:02)
[2019-05-09] MEDS: QUETIAPINE 100 MG TABLET PO (21:02)
--- NOTE | 2019-05-09 21:50 | PC.NURSE ---
Evening note: Ellie tearful at times tonight, she is Ox3 & situation. VS stable, Tele has been DC'd, rhythm sinus. IV Antibiotic infused, DL midline PICC to LILY is heparin locked, both ports drawing back blood & flushing with no difficulty. Patient refused her Keppra tonight. I talked with her about why, she said this morning I threw it back up. I asked if the medication makes her nauseated and she said yes, and I am not taking it tonight. Talked about how having a seizure would be worse than having nausea. I asked her what happens when she misses a dose at home, she said I don't. Reports last seizure august of last year. Patient still refusing med saying I understand--I am just not going to take it. Seizure pads in place, bed alarm active for safety, I instructed her to call before getting OOB, she agreed to this plan.
[2019-05-10] MEDS: PIPERACILLIN-TAZO 3.375 GM/50 ML FROZ.PIGGY IV ×3 (00:14→11:45)
[2019-05-10 00:37] VITALS: BP 101/64; PULSE 93; RESP 16; TEMP 36.9; O2SAT 90
[2019-05-10 01:10] VITALS: O2SAT 93
[2019-05-10 04:38] VITALS: BP 93/62; PULSE 90; RESP 16; TEMP 36.1; O2SAT 95
[2019-05-10 07:11] LABS: Alanine Aminotransferase 24 IU/L (<35); Albumin 2.2 g/dL (3.5-5.0); Albumin Globulin Ratio 0.7 (1.0-2.8); Alkaline Phosphatase 237 U/L (38-126); Aspartate Aminotransferase 124 IU/L (14-36); BUN Creatinine Ratio 4.3 (6-22); Bilirubin Total 0.9 mg/dL (0.2-1.3); Blood Urea Nitrogen 3 mg/dL (7-17); Calcium 7.3 mg/dL (8.4-10.2); Carbon Dioxide 29 mmol/L (22-32); Chloride 107 mmol/L (98-107); Estimated Glomerular Filt Rate > 60.0 mL/min (>60); Globulin 3.1 g/dL (1.7-4.1); Glucose 74 mg/dL (70-100); HEMOLYSIS < 15 (0-50); Magnesium 2.1 mg/dL (1.6-2.3); Potassium 3.5 mmol/L (3.4-5.1); Sodium 140 mmol/L (137-145); Total Protein 5.3 g/dL (6.3-8.2)
[2019-05-10 07:16] LABS: Add Manual Diff / Slide Review NO; Basophils Absolute Auto 100 /uL (0-100); Basophils Percent Auto 0.9 % (0-2); Eosinophils Absolute Auto 100 /uL (0-450); Eosinophils Percent Auto 0.9 % (2-4); Hematocrit 24.8 % (36-46); Hemoglobin 8.3 g/dL (12.0-16.0); Lymphocytes Absolute Auto 1000 /uL (1100-4500); Lymphocytes Percent Auto 8.1 % (25-40); Mean Corpuscular HGB Conc 33.3 % (30-36); Mean Corpuscular Hemoglobin 30.4 PG (26-34); Mean Corpuscular Volume 91.3 fL (80-100); Monocytes Absolute Auto 800 /uL (0-900); Monocytes Percent Auto 6.5 % (3-14); Neutrophils Absolute Auto 10300 /uL (1500-7000); Neutrophils Percent Auto 83.6 % (50-75); Platelet Count 350 X10^3/uL (150-400); Red Blood Cell Count 2.71 X10^6/uL (4.0-5.2); Red Cell Distribution Width 20.5 % (11.6-14.8); White Blood Cell Count 12.3 X10^3/uL (4.5-11.0)
[2019-05-10 07:30] LABS: Procalcitonin 0.45 ng/mL (<0.5)
[2019-05-10] MEDS: ACETAMINOPHEN 325 MG TABLET 650 MG PO (07:35)
[2019-05-10] MEDS: ONDANSETRON 4 MG/2 ML INJ IV ×2 (07:35→11:45)
[2019-05-10 08:05] VITALS: BP 96/54; PULSE 82; RESP 16; TEMP 36.1; O2SAT 94
[2019-05-10 08:08] LABS: Target Cells 1+
[2019-05-10 08:12] LABS: Anisocytosis 2+
[2019-05-10] MEDS: SPIRONOLACTONE 50 MG TABLET PO ×2 (09:03→14:25)
[2019-05-10] MEDS: FUROSEMIDE 20 MG TABLET PO ×2 (09:03→14:25)
[2019-05-10] MEDS: APIXABAN 5 MG TABLET 2.5 MG PO (09:04)
[2019-05-10] MEDS: lamoTRIgine 100 MG TABLET 150 MG PO (09:04)
[2019-05-10] MEDS: SERTRALINE 50 MG TABLET PO (09:04)
[2019-05-10] MEDS: SODIUM CHLORIDE 0.9% FLUSH 10 ML IV (09:04)
[2019-05-10] MEDS: levETIRAcetam 250 MG TABLET 1000 MG PO (09:05)
[2019-05-10 13:00] VITALS: BP 110/71; PULSE 58; RESP 16; TEMP 36.3; O2SAT 99
--- NOTE | 2019-05-10 13:33 | DI.CT.S_ITS ---
PROCEDURE: CT ABDOMEN PELVIS W CON INDICATIONS: intraluminal fluid collec vs abscess TECHNIQUE: After the administration of oral and intravenous contrast, 5 mm thick sections acquired from the diaphragms to the symphysis. 5 mm thick coronal and sagittal reformats were performed. For radiation dose reduction, the following was used: automated exposure control, adjustment of mA and/or kV according to patient size. COMPARISON: None. FINDINGS: Image quality: Excellent. ABDOMEN: Lung bases: Lung bases are demonstrated moderate right and small left pleural effusions, normal size heart, and densely calcified subcarinal lymph node. An anastomotic staple line is present at the gastroesophageal junction. there are subdiaphragmatic surgical changes of gastric bypass. Heart size is normal. Solid organs: There is marked hepatomegaly with the liver measuring 26 cm in length and demonstrating irregular profound patchy areas of hypodensity involving the left lobe, portions of the posterior right lobe, and caudal right lobe. This has not changed since prior study.. Gallbladder is surgically absent. Biliary system is non-dilated. The spleen is normal size and contains multiple coarse calcifications consistent with granulomas. Pancreas enhances normally. No adrenal nodules. Kidneys are normal in size and enhancement, without hydronephrosis. Peritoneum and bowel: There is oral contrast in a small gastric pouch and no oral contrast in the excluded stomach. The previously seen central abdominal fluid collection adjacent to bowel anastomosis has resolved. There are no extraluminal collections oral contrast or suspicious dilated bowel loops. Oral contrast is seen throughout the colon and into the rectum. There is a small to moderate amount of intraperitoneal ascites, mainly in the low pelvis and caudal paracolic gutters slightly decreased in extent compared to the prior study. No extraluminal gas. Nodes and vessels: No retroperitoneal or mesenteric adenopathy. Aorta and inferior vena cava are normal in caliber. Miscellaneous: No ventral hernias. There is body wall anasarca to similar degree. PELVIS: Genitourinary: Bladder wall thickness is normal. Uterus is surgically absent. Miscellaneous: No inguinal hernias or adenopathy. Bones: No suspicious bony lesions. There are superior endplate compression deformities of T11, T12, and L2 likely secondary to degenerative Schmorl's nodes which have not significantly changed compared to the most recent prior study. IMPRESSION: 1. No evidence of suspicious intra-abdominal fluid collection to suggest abscess. Fluid collection seen previously was likely patulous small bowel anastomosis. 2. Marked hepatomegaly and irregular hepatic hypodensity which may be seen in hepatic edema or steatosis. Correlate with hepatic functions. 3. Surgical changes of gastric bypass, hysterectomy, and cholecystectomy. 4. Mild intraperitoneal ascites, bilateral effusions, left much greater than right, and anasarca. Dictated by: Nuzhat Jacob M.D. on 05/10/2019 at 17:20 Approved by: Nuzhat Jacob M.D. on 05/10/2019 at 17:32
[2019-05-10] MEDS: LORazepam 0.5 MG TABLET PO (13:52)
--- NOTE | 2019-05-10 13:57 | DIET.PN ---
Dietary Progress Note Assessment: Ms. Brito is a 53-year-old female with PMHx of HTN, h/o DVT x2, h/o uterine cancer (s/p hysterectomy, 2001), pancreatitis, obesity (s/p gastric bypass early ), epilepsy, psychiatric illness (PTSD, depression, h/o prior meth abuse and EtOH abuse), and chronic back pain. She has a history of multiple abdominal surgeries (appendectomy, gastric by pass surgery w/ complications, partial small-bowel resection, YOANA, and abdominoplasty. She presented to the ED on 05/08/2019 out of concern for abdominal pain. Associated symptoms include exertional dyspnea, peripheral edema, abdominal distention, 40 lb weight loss (over 4 months), progressive fatigue, and chest pain. She reports difficulty swallowing and sensation of food being stuck in esophagus, especially spicy foods. She has difficulty eating many meats and salads r/t poor dentition. She does not have lower dentures at this time. She has moderate to severe muscle wasting. Admits to drinking heavy amounts of gatorade and tea and frequently consuming sodium rich, spicy foods. HT: 166.37cm WT: 69.5kg UBW: 88kg % change: 21% BMI: 25.1 Labs: (on admission) Hgb: 10.6 Hct: 32.1 PT: 15.8 INR: 1.4 BUN: 4 AST: 122 Lipase: 138 T Bili: 1.5 MNA: 10 Cristóbal: 22 Nutrition Diagnosis: Severe chronic PCM r/t alteration in GI tract structure or function aeb GI symptoms (N/V) > 2 wks, weight loss 21% in 4 mo, lifestyle hx of ETOH/meth abuse, mod-severe loss of muscle mass of clavicles, shoulders mod-severe edema/ascites. Interventions: 1. Provided handouts on liver cirrhosis nutrition therapy. Discussed importance of low fat/high protein. 2. Limit sodium to 2 g/day. Provided specific meal time amounts (B:400mg L:500mg D:600mg). Provided food guide for an example. 3. Provided handouts on bariatric sugery nutrition therapy and supplement needs. Pt will take a multi vitamin with additional Ca and Vitamin D BID, iron and B12. 4. Discussed importance of regular activity and maintaining lean muscle mass. Diet Order: low na (2 g); fluid restriction EER: 1500 scott @25 scott/kg IBW; 75-87 g pro @ 1.3-1.5 g/kg Monitoring/Evaluations: weight, PO's, need for ONS if PO's <70%
--- NOTE | 2019-05-10 14:54 | PC.NURSE ---
Patient alert and oriented this shift. Nausea intermittent, patient states ordered nausea medication helpful. Care is ongoing.
--- NOTE | 2019-05-10 15:03 | PC.NURSE ---
Patient appointment given to appointment as arranged by [facility]. Dr. Perez on May 19, 2019 at 0930.
[2019-05-10 15:30] VITALS: BP 100/65; PULSE 101; RESP 20; TEMP 36.8; O2SAT 96
--- NOTE | 2019-05-10 15:46 | PC.NURSE ---
Addendum entered by Blaire Flores R.N. 05/10/19 19:57: Pt received orders for D/C home. TERE midline discontinued intact, w/o incidence. D/C instructions and RX given w/apparent understanding. Pt escorted to her vehicle by staff in stable condition. OK'd by to drive home. Original Note: Pt assisted to BR., had loose stool. Lungs clear, SpO2 97% RA Pt continues to attempt drinking contrast for CT. TERE midline intact. Call light w/in reach. Pt calls appropriately for needs.
--- NOTE | 2019-05-10 18:21 | P.DS_ITS ---
History of Present Illness History of Present Illness Date Patient Seen: 05/10/19 Chief complaint: states abnormal labs, legs swelling Narrative: Written by Elsa AC: The patient is a 53-year-old female with complex PMH... HTN, factor V leiden, h/o DVT x2 (LLE 1995, ?), PE x2 (1197, ?), chronic Eliquis anticoagulation, h/o uterine cancer (s/p hysterectomy, 2001), pancreatitis, obesity (s/p gastric bypass), epilepsy (last seizure 08/2018), psychiatric illness (PTSD, depression, agoraphobia, h/o prior meth abuse and EtOH abuse), chronic back pain, RLS, h/o SBO x2, Patient presented to the ED on 05/08/2019 out of concern for abdominal pain. Abdominal pain is localized to the RUQ and epigastic regions of the abdomen. Associated symptoms include exertional dyspnea, peripheral edema, abdominal distention, 40 lb weight loss (over 4 months), progressive fatigue, and chest pain (worse w/ inspiration). Patient reports difficulty swallowing and s ensation of food being stuck in esophagus. Reports change in pattern of micturition and color of urine. Denies fever and chills. Abdominal pain is exacerbated by food consumption. Reports rectal bleeding 1 month ago, which patient attributed to hemorrhoids. Last BM on Friday. Reports passing gas. Known history of multiple abdominal surgeries (appendectomy, gastric by pass surgery w/ complications, partial small-bowel resection, YOANA, and abdominoplasty. Prior h/o of SBO x2 (last 10 y[address] ago). CT (chest, abdomen, and pelvis) concerning for left pleural effusion, hepatomegaly / hepatocellular disease and short-segment partial SBO vs. extraluminal abscess. General surgery was consulted, Dr. Barnes, with plans to see patient later this morning. Pertinent abnormal labs... WBC 16.1, Hgb 10.6 ED Presentation & Work-Up Stable VS trend. Labs, 05/08/19 1831 WBC 16.1 Lactate 0.6 Trop < 0.012 Nt-pro BNP 555 Hgb 10.6 Plt 410 PT 15.8 INR 1.4 aPTT 45 Na 140 K 3.6 Cl 102 Ca 8.1 Alb 3.0 Glu 103 CO2 27 BUN 5 Cr 0.6 BUN:Cr 8.3 AST 188 ALT 32 ALP 346 Lipase 138 CK (tot) 27 CT of chest / abdomen / pelvis Moderate left pleural effusion with posterior lower lobe atelectasis Liver is enlarged severely, question hepatocellular disease There is a geographic pattern of fatty infiltration w/ focal areas of fat sparing A 7.5 cm x 4.6 cm fluid collection in the midline of the upper pelvis, question of short segment partial SBO vs. Extraluminal Abscess In ED received, levofloxacin 500 mg. Discharge Providers Provider Date of admission: 05/09/19 04:16 Discharge Date: 05/10/19 Primary care physician: Kendal Perez DO Consults: 05/08/19 19:23 Consult After Hours PICC Line RN Stat Comment: 05/09/19 03:30 Consult to General Surgery Stat Comment: Consulting Provider: Alexei Chan Reason for consultation: bowel obstruction vs. abscess Has provider been notified: Yes 05/09/19 18:15 Consult to Dietitian, Adult Routine Comment: Reason For Exam: weight loss, PCM, vit def, liver disease Discharge provider: Kati Brennan DO Summary Hospital Course Discharge Diagnosis: 1. Acute on chronic abdominal pain, secondary to probable spontaneous bacterial peritonitis, present on admission. Resolving. 2. Newly diagnosed fatty liver disease with early cirrhosis and mild ascites, present on admission. Stable. 3. Normocytic anemia, chronic, present on admission. Stable. 4. Factor V Leiden, chronic condition, present on admission, active 5. Epilepsy, chronic, present on admission. Stable. 6. Anxiety and depression, chronic condition, present on admission, controlled / stable Hospital Course: Ellie Brito is a 53-year-old with a complex past medical history significant for hypertension, factor V leiden, history of DVT x2 (LLE 1995, ?), PE x2 (1996, ?), on chronic anticoagulation with Eliquis, history of uterine cancer status post hysterectomy (2001), pancreatitis, obesity status post gastric stapling and Marlee-en-[id number], epilepsy (last seizure 08/2018), psychiatric illness (PTSD, depression , and agoraphobia), history of prior meth abuse and alcohol abuse, chronic back and abdominal pain, RLS, and history of SBO x2 who presented to ED for progressive worsening acute on chronic abdominal pain. 1. Acute on chronic abdominal pain, secondary to probable spontaneous bacterial peritonitis, present on admission. Resolving. -Patient has chronic right upper quadrant abdominal pain for the last 1 year which is likely secondary to hepatomegaly. Acute portion of abdominal pain probable secondary to SBP in setting of GI bleed. -Initial CT abdomen and pelvis with contrast concerning for abscess versus SBO. Repeat CT abdomen and pelvis with oral contrast and delayed transit demonstrated -Initial WBC 16.2 on 05/07/2019 and slowly normalizing now 12.3. Procalcitonin 0.45 which is negative and may be falsely elevated in liver disease. -Consulted general surgery who did not recommend surgical intervention. Recommended small-bowel follow-through to further assess anatomy which patient did not tolerate due to nausea and vomiting, therefore, repeated CT abdomen and pelvis with oral contrast and delayed transit of 3 hours which demonstrated no evidence of suspicious intra-abdominal fluid collection to suggest abscess. Fluid collection seen previously was likely patulous small bowel anastomosis.Marked hepatomegaly and irregular hepatic hypodensity which may be seen in hepatic edema or steatosis. Surgical changes of gastric bypass, hysterectomy, and cholecystectomy. Mild intraperitoneal ascites, bilateral effusions, left much greater than right, and anasarca. -Received levofloxacin 500 mg IV x1 and metronidazole 500 mg IV x1 in ED. Switched to Zosyn 3.375 g every 6 hours due to lowering of seizure threshold with metronidazole. Continued ciprofloxacin 500 mg twice daily for 5 additional days to treat probable SBP. 2. Newly diagnosed fatty liver disease with early cirrhosis and mild ascites, present on admission. Stable. -likely secondary to morbid obesity with GAN and previous alcohol abuse with FABIANA. -CT abdomen and pelvis with oral contrast demonstrated severe hepatomegaly with fatty hepatocellular disease. -Initial LFTs: Total bilirubin 1.5, AST 188, ALT 32, and ALP 346. T.Bili 1.5. LFTs improving with: Total bilirubin 0.9, AST 124, ALT 24, ALP 237. -Lipase normal at 138. -Hepatitis panel drawn on 05/07/2019 is negative with exception HBsAB which is a send out and pending. -Avoided hepatotoxic agents and dose adjusted or discontinued hepatic metabolized medications as below. -Continued diuresis with 2:1 spironolactone: furosemide and slowly titrated up and discharged on spironolactone 100 mg daily and furosemide 40 mg daily. -Echocardiogram ruled out CHF. -Continued fluid restriction of 1.5 L daily and low-sodium diet less than 2 g per day. -Consulted dietitian and we appreciate her time and recommendations. Recommend referral to outpatient dietitian per PCP. Recommended patient lose 10-15% body fat and gain muscle mass. -Recommend referral to hepatology as an outpatient to further evaluate and treat liver disease per PCP. 3. Normocytic anemia, chronic, present on admission. Stable. -Acute portion likely secondary to recent rectal bleeding that patient believes is due to hemorrhoids and chronic portion due to bone marrow suppression from liver disease and anemia of chronic liver disease. -Initial hemoglobin 8.4 and stable. Previously 10.6 the day prior to admission and likely decreased due to rectal bleeding. -Patient has history of bariatric surgery and partial small-bowel resection. Patient reports monthly rectal bleeding due to hemorrhoids. -Continued to monitor H&H closely. -Ordered stool guaiac which was not completed as patient had no hematochezia or melena. Patient reports mayda-colored stools. -Vitamin B12 level normal at 908. Folate level normal at 7.0. -Iron panel demonstrated as anticipated iron deficiency anemia likely due to GI bleed and anemia of chronic disease. Consider iron replacement once infection has been completely treated and resolved per PCP. -Patient has scheduled EGD and colonoscopy with GI at [facility] for to 05/14/2019 and recommended keeping this appointment. 4. Factor V Leiden, chronic condition, present on admission, active -History of prior PE and DVT on Eliquis for chronic anticoagulation. -Continued home Eliquis 2.5 mg twice daily. Eliquis is not recommended in severe liver disease, however, patient has longstanding history of VTE therefore did not discontinue. 5. Epilepsy, chronic, present on admission. Stable. -Last seizure on October 16, 2018. -Continued levetiracetam 1000 mg twice daily and recommend reducing lamotrigine by 50% in severe liver disease with ascites and lowered dose from 150 mg to 75 mg daily. -Continued seizure precautions. 6. Anxiety and depression, chronic condition, present on admission, controlled / stable -Patient denies harmful ideations towards self or others. -Continued sertraline but recommend titrating off in moderate to severe liver disease, therefore, decreased to 25 mg daily for 1 week then stop and reduce quietipine by 50% in liver disease from 100 mg to 50 mg daily at bedtime. Exam Vital Signs (past 8 hours): - 05/10/19 13:00 05/10/19 15:30 Temperature 97.4 F L 98.2 F Pulse Rate 58 L 101 H Respiratory Rate 16 20 Blood Pressure 110/71 100/65 Pulse Oximetry 99 96 Oxygen Delivery Method Room Air Oxygen Flow Rate 0 Narrative Exam Narrative: General: Older female sitting in bed and in no acute distress, appears older than stated age in chronically ill, well-developed, well-nourished, mildly anxious but otherwise appropriately interactive. HEENT: Normocephalic, atraumatic. External ears without defect. Pupils equal, round, and reactive to light. Anicteric sclerae, moist conjunctivae, and no lid lag. Oropharynx free of erythema and cobble stoning with moist mucosa. Poor dentition. Neck: Supple with full range of motion. No jugular venous distension. No lymphadenopathy or thyromegaly. Cardiovascular: Regular rate and rhythm without murmurs, rubs, or gallops appreciated. Pulmonary: Clear to auscultation bilaterally with fine bibasilar crackles. No wheezes or rhonchi.. Normal respiratory effort with no use of accessory muscles. Abdomen: Soft, bowel sounds present, mild ascites, mild tenderness to palpation right upper quadrant, nondistended. Hepatosplenomegaly present.. Extremities: No clubbing or cyanosis. Anasarca improving. Skin: Normal temperature, turgor, and texture; no rash, ulcers, or subcutaneous nodules appreciated. Neurological: Cranial nerves grossly intact. Psychiatric: Mildly anxious mood and normal affect. Alert and oriented to person, place, and time. Objective Labs Result Diagrams: 05/10/19 06:45 05/10/19 06:45 Labs: Laboratory Results - last 24 hr 05/09/19 05/10/19 05/10/19 19:30 06:45 06:45 WBC 12.3 H RBC 2.71 L Hgb 8.3 L Hct 24.8 L MCV 91.3 MCH 30.4 MCHC 33.3 RDW 20.5 H Plt Count 350 Neut % (Auto) 83.6 H Lymph % (Auto) 8.1 L [place] % (Auto) 6.5 Eos % (Auto) 0.9 L Baso % (Auto) 0.9 Neut # (Auto) 46813 H Lymph # (Auto) 1000 L [place] # (Auto) 800 Eos # (Auto) 100 Baso # (Auto) 100 RBC Morphology See below Anisocytosis 2+ H Target Cells 1+ H Sodium Potassium Chloride Carbon Dioxide BUN Creatinine Estimated GFR BUN/Creatinine Ratio Glucose Calcium Magnesium Total Bilirubin AST ALT Alkaline Phosphatase Total Protein Albumin Globulin Albumin/Globulin Ratio Procalcitonin 0.45 Urine Color Yellow Urine Appearance Clear Urine pH 5.0 Ur Specific [place] 1.015 Urine Protein Negative Urine Glucose (UA) Negative Urine Ketones Negative Urine Occult Blood Negative Urine Nitrate Negative Urine Bilirubin Negative Urine Urobilinogen 0.2 Ur Leukocyte Esterase Negative Urine RBC None seen Urine WBC None seen Ur Squamous Epith Cells 1-5 /hpf Urine Bacteria None seen Hyaline Casts 1-5/lpf Ur Culture Indicated? Cult not indicated 05/10/19 06:45 WBC RBC Hgb Hct MCV MCH MCHC RDW Plt Count Neut % (Auto) Lymph % (Auto) [place] % (Auto) Eos % (Auto) Baso % (Auto) Neut # (Auto) Lymph # (Auto) [place] # (Auto) Eos # (Auto) Baso # (Auto) RBC Morphology Anisocytosis Target Cells Sodium 140 Potassium 3.5 Chloride 107 Carbon Dioxide 29 BUN 3 L Creatinine 0.70 Estimated GFR > 60.0 BUN/Creatinine Ratio 4.3 L Glucose 74 Calcium 7.3 L Magnesium 2.1 Total Bilirubin 0.9 AST 124 H ALT 24 Alkaline Phosphatase 237 H Total Protein 5.3 L Albumin 2.2 L Globulin 3.1 Albumin/Globulin Ratio 0.7 L Procalcitonin Urine Color Urine Appearance Urine pH Ur Specific [place] Urine Protein Urine Glucose (UA) Urine Ketones Urine Occult Blood Urine Nitrate Urine Bilirubin Urine Urobilinogen Ur Leukocyte Esterase Urine RBC Urine WBC Ur Squamous Epith Cells Urine Bacteria Hyaline Casts Ur Culture Indicated? Discharge Plan Discharge Plan Patient Disposition: Home Discharge comment: You're being discharged home. You have fatty liver disease and likely early cirrhosis. You have been prescribed furosemide 40 mg daily and spironolactone 100 mg daily for diuresis. Please follow-up with your primary care physician, Dr. Perez, regarding your hospitalization and for referral to hepatology for further evaluation of your liver disease and dietitian for continued guidance regarding weight loss, vitamin deficiency, and low sodium/fluid restriction. Please keep your scheduled appointment for upper and lower endoscopy on 05/14/2019. Your echocardiogram was normal and you do not have heart failure. Recommend 10-15% weight loss and increase muscle mass. Please do not eat more than 2000 mg or 2 g of sodium per day and abide by a fluid restriction (all fluids) of 1.5 L daily. Your medications need to be reduced due to her liver disease and include: Lamotrigine decreased from 150 mg to 75 mg daily, quetiapine 100 mg to 50 mg daily at bedtime, and titrate off of sertraline over the next week by decreasing dose from 50 mg daily to 25 mg daily x 1 week then stop. You have been prescribed ciprofloxacin 500 mg twice daily for 5 days to treat possible abdominal fluid infection. Your CT scan did not demonstrate any abnormalities. Discharge orders & Medications Prescriptions: New furosemide 20 mg Tablet 40 mg PO DAILY Qty: 30 RF: 0 spironolactone 50 mg Tablet 100 mg PO DAILY Qty: 30 RF: 0 ciprofloxacin HCl 500 mg tablet 500 mg PO BID Qty: 10 RF: 0 Continued hydroxyzine HCl 25 mg tablet 25 mg PO QID PRN (Reason: anxiety) Qty: 120 RF: 5 promethazine 25 mg tablet 25 mg PO Q6H PRN (Reason: nausea and vomiting) Qty: 30 RF: 1 levetiracetam 1,000 mg tablet 1,000 mg PO BID Qty: 60 RF: 0 Eliquis 2.5 mg tablet 2.5 mg PO BID Qty: 60 RF: 5 Changed quetiapine [Seroquel] 100 mg tablet 50 mg PO BEDTIME Qty: 30 RF: 0 sertraline 50 mg tablet 25 mg PO DAILY Qty: 7 RF: 0 lamotrigine 100 mg tablet 75 mg PO DAILY Qty: 30 RF: 0 Follow up/Referrals: Kendal Perez DO [Primary Care Provider] - 05/19/19 9:30 am Diet/Activity/Treatments Diet: Low-sodium Activity: Activity as tolerated Visit Report/Discharge Packet Instructions: The Mediterranean Diet and Good Health, DI for Ascites, DI for Cirrhosis, Fluid Restricted Diet, Low-Sodium Diet Discharge Data Primary Care Provider: Kendal Perez Discharges patient from system. Discharge Date/Time: 05/10/19 20:01 Quality VTE Deep Vein Thrombosis/Pulmonary Embolism Present on Admission: No
[2019-05-10 19:06] LABS: HEMOLYSIS < 15 (0-50); Iron 24 ug/dL (37-170)
[2019-05-10 19:17] LABS: Percent Iron Saturation 12 % (15-50); Total Iron Binding Capacity 198 ug/dL (265-497); Transferrin 133 mg/dL (206-381)
[2019-05-10 20:16] LABS: Vitamin B12 908 pg/mL (239-931)
--- NOTE | 2019-05-11 15:52 | CM.DPC ---
DCP Cont: Per MD, pt will need small bowel follow through and likely Echo and then pending results can likely d/c home. Pt tolerated procedures and was stable for d/c home yesterday 05/10/19 after SW shift ended. Pt was able to safely transport home last night with no SW needs and follow up appointments recommended. Plan: Patient discharged home last night via POV and no SW needs at that time. CHASE Muniz
== END 2019-05-10 20:01 | disposition home or self-care (01) | DRG 372 ==
LOC: ED 05-09 03:50 → AC 05-09 04:16
PROVIDERS: Emergency Medicine; Internal Medicine; Admitting Provider Nurse Practitioner Gerontology; Emergency Provider Emergency Medicine; Family Provider Family Medicine; PCP Family Medicine; Referring Provider Emergency Medicine; Visit Provider Nurse Practitioner Gerontology
DX: K65.2 Spontaneous bacterial peritonitis (principal); R18.8 Other ascites; D68.51 Activated protein C resistance; J90 Pleural effusion, not elsewhere classified; K76.0 Fatty (change of) liver, not elsewhere classified; G40.909 Epilepsy, unspecified, not intractable, without status epilepticus; F32.9 Major depressive disorder, single episode, unspecified; F41.9 Anxiety disorder, unspecified; I10 Essential (primary) hypertension; D64.9 Anemia, unspecified; G25.81 Restless legs syndrome; M54.9 Dorsalgia, unspecified; Z98.84 Bariatric surgery status; Z86.718 Personal history of other venous thrombosis and embolism; Z79.01 Long term (current) use of anticoagulants; Z86.711 Personal history of pulmonary embolism
CPT/HCPCS: 36415; 36592; 71260; 74177; 80053; 81001; 82140; 82550; 82607; 82746; 83540; 83550; 83605; 83690; 83735; 83880; 84145; 84484; 85025; 85610; 85730; 86706; 86803; 86850; 86900; 86901; 87340; 87389; 93005; 93306; 96365; 99232; 99284; 99285; J1642; J1956; J2405; J2543; J3480; Q9967